=== PATIENT | male | born 1960 | race Caucasian/White ===

== ENCOUNTER 2021-06-23 14:46 | Inpatient (IN) ==
--- NOTE | 2021-06-23 15:54 | Emergency Department Note ---
HPI General Chief complaint: Abdominal Pain Stated complaint: Gallbladder Surgery Time Seen by Provider: 06/23/21 14:55 Source: patient Mode of arrival: ambulatory Limitations: no limitations History of Present Illness HPI Narrative: Narrative: 60 yo M w/ h/o nephrolithiasis p/w RUQ pain. He reports that he has been having pain on and off some a few months, and has been Dx'd w/ back spasm and a nephrolithiasis. He saw his PCP for his ongoing RUQ, who ordered a HIDA scan. Results of this showed cholecystitis. He has not had an US. He currently c/o RUQ pain that is sharp, non-radiating, worsened w/ PO intake. He has not had similar Sx in the past. Of note, after I completed my evaluation of the pt, his PCP called and reported a positive HIDA scan and stated that she had already coordinated admission w/ Dr Corbin. Related Data Home Medications Medication Instructions Recorded Confirmed cholecalciferol (vitamin D3) 50 50 mcg PO QDAY 06/16/21 06/23/21 mcg (2,000 unit) capsule magnesium 250 mg tablet 250 mg PO QDAY 06/16/21 06/23/21 testosterone TOPICAL 06/16/21 06/16/21 Previous Rx's Medication Instructions Recorded ondansetron 4 mg PO Q8H PRN #10 tab 06/15/21 tamsulosin 0.4 mg PO QDAY #14 cap 06/15/21 tramadol 50 mg tablet 50 mg PO BID PRN 10 Days #20 tab 06/16/21 Allergies Allergy/AdvReac Type Severity Reaction Status Date / Time No Known Drug Allergies Allergy Verified 06/23/21 14:51 Review of Systems ROS ROS Narrative: Narrative: All systems ED: reviewed and negative except as stated. [facility] Narrative Patient History Narrative: Narrative: Medical/Surgical/Family History All Active Problems (Updated 06/23/21 @ 19:30 by Sher Corbin MD) Cholecystitis, chronic (Acute) Abdominal pain, right upper quadrant (Acute) Cholecystitis, chronic (Acute) Establishing care with new doctor, encounter for (Acute) Aneurysm of left renal artery (Acute) Back muscle spasm (Chronic) Back pain (Chronic) Nausea (Chronic) Lower thoracic back pain (Chronic) Flank pain (Chronic) Kidney stone (Chronic) Ureteral stone (Chronic) Left foot pain (Chronic) Plantar fasciitis of left foot (Chronic) Fatigue (Chronic) Family history of coronary artery disease younger than 40 years old (Chronic) History of colonoscopy (Chronic 10/22/19) DDD (degenerative disc disease), cervical (Chronic) History of hernia repair (Chronic) History of rotator cuff surgery (Chronic ~2010) Depression (Chronic) Anxiety (Chronic) Chest pain (Chronic) Headache (Chronic) Skin lesion (Chronic) Basal cell carcinoma (Chronic) Lumbar back pain (Chronic) RLQ abdominal pain (Chronic) DDD (degenerative disc disease), lumbar (Chronic) Ganglion cyst (Chronic) Medical History Anxiety Back muscle spasm Back pain Basal cell carcinoma face - Paige Arnzan Chest pain DDD (degenerative disc disease), cervical IPC 2009 DDD (degenerative disc disease), lumbar Depression Family history of coronary artery disease younger than 40 years old Fatigue Flank pain Ganglion cyst Headache Kidney stone Left foot pain Lower thoracic back pain Lumbar back pain Nausea Plantar fasciitis of left foot RLQ abdominal pain Skin lesion Ureteral stone Surgical History History of colonoscopy (10/22/19) 10/12/10 Dr Ugalde - recheck in 10 years History of hernia repair as a History of rotator cuff surgery (~2010) left shoulder rotator cuff repair - Dr Hunt Family History Father , age 37 Heart disease HTN (hypertension) Mother HTN (hypertension) Diabetes mellitus Arthritis Basal cell carcinoma Sister Basal cell carcinoma Grandmother HTN (hypertension) paternal Heart disease paternal Social History Smoking Status: Never smoker Substance Use: does not use Exam Narrative Narrative: Narrative: General Limitations: no limitations General appearance: Present alert and in no apparent distress Head Head: Present atraumatic and normocephalic ENT ENT: Present normal oropharynx and mucous membranes moist Chest Chest: Present normal inspection and symmetric chest wall rise Respiratory Respiratory: Present normal lung sounds bilaterally; Absent respiratory distress, rales/crackles, wheezes and stridor Cardiovascular Cardiovascular: Present regular rate, normal rhythm, +S1, +S2 and other (2+ B/L radial pulses); Absent systolic murmur and diastolic murmur Adbominal Abdominal: Present soft, tenderness (mild RUQ) and normal bowel sounds; Absent distention, guarding, rebound, rigidity and Castellanos's sign Extremities Extremities: Absent pedal edema Neurological Neurological: Present alert and oriented X3 Psychiatric Psychiatric: Present normal affect Skin Skin: Present warm (WNL) and dry Course Vital Signs Vital signs: Vital Signs Temperature 97.1 F 06/23/21 14:48 Pulse Rate 68 06/23/21 14:48 Respiratory Rate 18 06/23/21 14:48 Blood Pressure 170/91 06/23/21 14:48 Pulse Oximetry (%) 98 06/23/21 14:48 Temperature 97.1 F 06/24/21 04:00 Pulse Rate 59 L 06/24/21 04:00 Respiratory Rate 16 06/24/21 04:00 Blood Pressure 133/88 06/24/21 04:00 Pulse Oximetry (%) 96 06/24/21 04:00 MDM MDM Narrative Medical decision making narrative: Narrative: 60 yo M w/ no PMH p/w RUQ pain and reportedly positive HIDA scan. DDx - peritonitis, cholecystitis, pancreatitis, metabolic/electrolyte d/o Pt presented stable, in NAD. His examination revealed mild RUQ TTP. I received the HIDA report from [facility] and the impression was as follows: "Nonvisualization of the gallbladder. Could the patient have chronic cholecystitis?". This was clinically not a surgical emergency and peritonitis was not present. I proceeded w/ labs and imaging. His CBC showed no leukocytosis and no L shift. CMP showed normal LFTs. Lipase was WNL. US however, showed "Markedly abnormal gallbladder. Gallbladder is filled with small stones and debris. There is gallbladder wall thickening and pericholecystic fluid. Appearance is consistent with cholecystitis and gangrenous cholecystitis is possible". Clinically the imaging findings were much worse than Hx, PE, and labs. I d/w Dr Corbin, who kindly came in to the ED to evaluate the pt. He felt that operative management was indicated and admitted the pt, w/ plan for surgery in the AM. I placed an order for zosyn for him. Lab Data Lab results reviewed: Yes I reviewed the patient's lab results. Result diagrams: 06/24/21 05:18 06/23/21 16:02 Labs: Lab Results 06/23/21 06/23/21 06/23/21 Range/Units 16:02 16:02 16:02 WBC 9.4 (4.5-11.0) K/mcL RBC 5.21 (4.63-6.08) M/mcL Hgb 15.7 (13.7-17.5) g/dL Hct 47.5 (40.1-51.0) % MCV 91.2 (80.0-100.0) fL MCH 30.1 (26.0-34.0) pg MCHC 33.1 (31.0-36.0) g/dL RDW 12.1 (11.5-14.5) % Plt Count 323 (140-440) K/mcL MPV 9.3 (7.4-10.4) fL Neut % (Auto) 65.9 (38.0-78.0) % Lymph % (Auto) 25.4 (15.5-49.0) % Harnett % (Auto) 7.2 (1.0-12.0) % Eos % (Auto) 1.1 (0.0-7.0) % Baso % (Auto) 0.4 (0.0-2.0) % Lymph # (Auto) 2.38 (1.50-4.80) K/mcL Harnett # (Auto) 0.68 (0.10-0.90) K/mcL Eos # (Auto) 0.10 (0.00-0.70) K/mcL Baso # (Auto) 0.04 (0.00-0.30) K/mcL Absolute Neutrophils 6.18 (1.80-8.00) K/mcL PT 13.4 (11.9-14.5) sec INR 1.0 (0.9-1.1) APTT 26.0 (20.0-37.0) sec Sodium 143 (133-145) mmol/L Potassium 3.8 (3.3-5.1) mmol/L Chloride 102 (96-108) mmol/L Carbon Dioxide 23 (22-30) mmol/L Anion Gap 18.0 H (8.0-16.0) BUN 9 (6-20) mg/dL Creatinine 0.7 (0.7-1.2) mg/dL GFR Calculation 103 Glucose 94 (70-105) mg/dL Calcium 9.5 (8.6-10.4) mg/dL Total Bilirubin 0.4 (0.1-1.0) mg/dL AST 18 (<40) U/L ALT 19 (<40) U/L Alkaline Phosphatase 51 (39-117) U/L Total Protein 7.3 (5.9-8.4) gm/dL Albumin 4.3 (3.2-5.2) gm/dL Globulin 3.0 (2.2-3.7) gm/dL Albumin/Globulin Ratio 1.4 (1.0-2.3) Lipase 44 (7-60) U/L ED POC Tests ED POC Tests: ESME - SARS Antigen Negative Radiology Data Radiology results reviewed: Yes I reviewed the patient's radiology results. Discharge Plan Patient/Caregiver Discharge Instructions Pt seen by DRAW FRAME TENDER/PA only: No Clinical Impression: Abdominal pain, right upper quadrant, Cholecystitis, chronic Patient Disposition: Xfer As Inpt ([facility]) Condition: Fair Discharge Date/Time: 06/23/21 20:42
[2021-06-23 16:56] LABS: Basophils # (Auto) 0.04 K/mcL (0.00-0.30); Basophils % (Auto) 0.4 % (0.0-2.0); Eosinophils % (Auto) 1.1 % (0.0-7.0); Hematocrit 47.5 % (40.1-51.0); Hemoglobin 15.7 g/dL (13.7-17.5); Lymphocytes # (Auto) 2.38 K/mcL (1.50-4.80); Lymphocytes % (Auto) 25.4 % (15.5-49.0); Mean Cell Volume 91.2 fL (80.0-100.0); Mean Corpuscular HGB Conc 33.1 g/dL (31.0-36.0); Mean Platelet Volume 9.3 fL (7.4-10.4); Monocytes # (Auto) 0.68 K/mcL (0.10-0.90); Monocytes % (Auto) 7.2 % (1.0-12.0); Neutrophils % (Auto) 65.9 % (38.0-78.0); Platelet Count 323 K/mcL (140-440); RBC 5.21 M/mcL (4.63-6.08); Red Cell Distribution Width 12.1 % (11.5-14.5); WBC 9.4 K/mcL (4.5-11.0)
[2021-06-23 17:07] LABS: Prothrombin Time 13.4 sec (11.9-14.5)
[2021-06-23] MEDS ORDERED: morphine 4 MG/ML VIAL IV ONE (17:13)
[2021-06-23] MEDS ORDERED: ONDANSETRON 4 MG/2 ML VIAL IV ONE ×2 (17:13→18:12)
--- NOTE | 2021-06-23 17:16 | Ultrasound Report ---
INDICATION: RUQ abd pain, r/o acute addison TECHNIQUE: Grayscale and color flow Doppler spectral imaging COMPARISON: Previous CT scans dated 06/22/2021, 04/26/2021 FINDINGS: Gallbladder:Markedly abnormal gallbladder. Echogenic material fills the gallbladder lumen with acoustic shadowing. Appearance is consistent with small stones and sludge. Gallbladder wall is thick and measures 7 mm. There is mild pericholecystic fluid. No acoustic shadowing from the gallbladder wall. No evidence for emphysematous cholecystitis. Appearance is consistent with cholecystitis and gangrenous cholecystitis is possible. Common bile duct:No intra or extrahepatic bile duct dilatation.. Common bile duct measures4 mm Liver:Liver is heterogeneous. No focal hepatic mass liver contour is smooth. There is no hepatic abscess.. Liver [id number] cm Portal vein:Normal hepatopedal portal venous flow Pancreas:Visualized portions of the pancreas are normal IMPRESSION: 1. Markedly abnormal gallbladder. Gallbladder is filled with small stones and debris. There is gallbladder wall thickening and pericholecystic fluid. Appearance is consistent with cholecystitis and gangrenous cholecystitis is possible 2. Heterogeneous hepatic parenchyma. No focal mass. No intrahepatic abscess 3. No bile duct dilatation Interpreted and Authenticated by: Brandon Hogan 06/23/21
[2021-06-23 17:18] LABS: ALT/SGPT 19 U/L (<40); AST/SGOT 18 U/L (<40); Albumin 4.3 gm/dL (3.2-5.2); Albumin/Globulin Ratio 1.4 (1.0-2.3); Alkaline Phosphatase 51 U/L (39-117); Bilirubin,Total 0.4 mg/dL (0.1-1.0); Blood Urea Nitrogen 9 mg/dL (6-20); Calcium 9.5 mg/dL (8.6-10.4); Carbon Dioxide 23 mmol/L (22-30); Chloride 102 mmol/L (96-108); Glomerular Filtration Rate 103; Glucose 94 mg/dL (70-105)
[2021-06-23] MEDS ORDERED: HYDROcodone/APAP 5/325MG TABLET PO ONE (18:11)
[2021-06-23] MEDS ORDERED: ONDANSETRON 4 MG ODT TABLET SL ONE (18:22)
[2021-06-23] MEDS ORDERED: PIPERACILLIN SODIUM/TAZOBACTAM 4.5 GM in DEXTROSE 5% IN WATER 50 ML IV ONE (18:41)
--- NOTE | 2021-06-23 19:20 | General Surgery Consult Note ---
HPI Data of Consult Patient: new to practice Consult date: 06/23/21 Requesting physician: Tristan Gregory Primary Care Provider: Brie Davis PA-C Consult Narrative Patient Information: Note initiated : 06/23/21 at 7:19 pm Service Date, if different from initiated Date: [] Patient: Angel Singh 60 y/o M admitted on for Gallbladder Surgery. Chief Complaint: [Cholecystitis] Angel is seen in consultation tonight after what sounds like a several month history of Right Sided Flank and Upper Abdominal Pain. He has undergone a fairly extensive work up over that time including [address] scans in the past week. He then underwent a HIDA Scan today which demonstrated failure of the gallbladder to fill and visualize. He has not had any prior abdominal surgery. His health is overall very good and he denies any cardiac or pulmonary issues. He is NOT on any oral anticoagulants and denies any use of a CPAP or BIPAP. Chief complaint: Abdominal Pain Reason for consult: Cholecystitis cc:: CC: Review of Systems All systems: reviewed and no additional remarkable complaints except as stated PFSH PFSH All Active Problems (Updated 06/23/21 @ 19:30 by Sher Corbin MD) Cholecystitis, chronic (Acute) Abdominal pain, right upper quadrant (Acute) Cholecystitis, chronic (Acute) Establishing care with new doctor, encounter for (Acute) Aneurysm of left renal artery (Acute) Back muscle spasm (Chronic) Back pain (Chronic) Nausea (Chronic) Lower thoracic back pain (Chronic) Flank pain (Chronic) Kidney stone (Chronic) Ureteral stone (Chronic) Left foot pain (Chronic) Plantar fasciitis of left foot (Chronic) Fatigue (Chronic) Family history of coronary artery disease younger than 40 years old (Chronic) History of colonoscopy (Chronic 10/22/19) DDD (degenerative disc disease), cervical (Chronic) History of hernia repair (Chronic) History of rotator cuff surgery (Chronic ~2010) Depression (Chronic) Anxiety (Chronic) Chest pain (Chronic) Headache (Chronic) Skin lesion (Chronic) Basal cell carcinoma (Chronic) Lumbar back pain (Chronic) RLQ abdominal pain (Chronic) DDD (degenerative disc disease), lumbar (Chronic) Ganglion cyst (Chronic) Medical History Anxiety Back muscle spasm Back pain Basal cell carcinoma face - Paige Arnzan Chest pain DDD (degenerative disc disease), cervical IPC 2009 DDD (degenerative disc disease), lumbar Depression Family history of coronary artery disease younger than 40 years old Fatigue Flank pain Ganglion cyst Headache Kidney stone Left foot pain Lower thoracic back pain Lumbar back pain Nausea Plantar fasciitis of left foot RLQ abdominal pain Skin lesion Ureteral stone Surgical History History of colonoscopy (10/22/19) 10/12/10 Dr Ugalde - recheck in 10 years History of hernia repair as a History of rotator cuff surgery (~2010) left shoulder rotator cuff repair - Dr Hunt Family History Father , age 37 Heart disease HTN (hypertension) Mother HTN (hypertension) Diabetes mellitus Arthritis Basal cell carcinoma Sister Basal cell carcinoma Grandmother HTN (hypertension) paternal Heart disease paternal Social History household members: spouse marital status: occupational status: employed 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, [employer] 4 day work week substance use type: does not use MEDS/ALLERGIES Home Medications and Allergies Home Medications Medication Instructions Recorded Confirmed Type ondansetron 4 mg PO Q8H PRN #10 tab 06/15/21 06/16/21 Rx tamsulosin 0.4 mg PO QDAY #14 cap 06/15/21 06/16/21 Rx cholecalciferol (vitamin D3) 50 50 mcg PO QDAY 06/16/21 06/16/21 History mcg (2,000 unit) capsule magnesium 250 mg tablet 250 mg PO QDAY 06/16/21 06/16/21 History testosterone TOPICAL 06/16/21 06/16/21 History tramadol 50 mg tablet 50 mg PO BID PRN 10 Days #20 tab 06/16/21 06/16/21 Rx Allergies Allergy/AdvReac Type Severity Reaction Status Date / Time No Known Drug Allergies Allergy Verified 06/23/21 14:51 Physical Examination Vital Signs Vital signs: Temp Pulse Resp BP Pulse Ox 97.1 F 73 18 153/90 93 06/23/21 14:48 06/23/21 17:06 06/23/21 14:48 06/23/21 17:06 06/23/21 17:06 General physical appearance General physical exam: well developed, well nourished, no distress and other (sitting up and having dinner in his ER room along with his ) Eyes Eye exam: normal ocular movement; negative icteric Head Head exam IM: Present atraumatic and normocephalic Neck Neck exam: trachea midline and no lymphadenopathy Cardiovascular Cardiovascular exam IM: Present normal rate and rhythm and RRR Respiratory Respiratory exam: normal expansion and normal respiratory effort Abdomen Abdomen: Present soft and non tender (minimally tender in the RUQ, no mass or other finding, no localized peritoneal findings ) Genitourinary Genitourinary (Male): Present other (no CVA tenderness ) Integumentary Integumentary: Present no abnormal pigmentation Neurologic Neurologic: Present other (grossly intact ) Psychiatric Psychiatric: Present oriented to person, oriented to place and speech is normal Results Labs Result diagrams: 06/23/21 16:02 06/23/21 16:02 Labs: Abnormal lab results 06/23/21 Range/Units 16:02 Anion Gap 18.0 H (8.0-16.0) Diabetes panel 06/23/21 Range/Units 16:02 Sodium 143 (133-145) mmol/L Potassium 3.8 (3.3-5.1) mmol/L Chloride 102 (96-108) mmol/L Carbon Dioxide 23 (22-30) mmol/L BUN 9 (6-20) mg/dL Creatinine 0.7 (0.7-1.2) mg/dL Glucose 94 (70-105) mg/dL Calcium 9.5 (8.6-10.4) mg/dL AST 18 (<40) U/L ALT 19 (<40) U/L Alkaline Phosphatase 51 (39-117) U/L Total Protein 7.3 (5.9-8.4) gm/dL Albumin 4.3 (3.2-5.2) gm/dL Calcium panel 06/23/21 Range/Units 16:02 Calcium 9.5 (8.6-10.4) mg/dL Albumin 4.3 (3.2-5.2) gm/dL Pituitary panel 06/23/21 Range/Units 16:02 Sodium 143 (133-145) mmol/L Potassium 3.8 (3.3-5.1) mmol/L Chloride 102 (96-108) mmol/L Carbon Dioxide 23 (22-30) mmol/L BUN 9 (6-20) mg/dL Creatinine 0.7 (0.7-1.2) mg/dL Glucose 94 (70-105) mg/dL Calcium 9.5 (8.6-10.4) mg/dL Adrenal panel 06/23/21 Range/Units 16:02 Sodium 143 (133-145) mmol/L Potassium 3.8 (3.3-5.1) mmol/L Chloride 102 (96-108) mmol/L Carbon Dioxide 23 (22-30) mmol/L BUN 9 (6-20) mg/dL Creatinine 0.7 (0.7-1.2) mg/dL Glucose 94 (70-105) mg/dL Calcium 9.5 (8.6-10.4) mg/dL Total Bilirubin 0.4 (0.1-1.0) mg/dL AST 18 (<40) U/L ALT 19 (<40) U/L Alkaline Phosphatase 51 (39-117) U/L Total Protein 7.3 (5.9-8.4) gm/dL Albumin 4.3 (3.2-5.2) gm/dL All other labs normal. A/P Assessment and plan (1) Cholecystitis, chronic: Status: Acute Narrative A/P Narrative: Severe Chronic and Subacute Cholecystitis He currently looks well and options are discussed including recommendation for Cholecystectomy along with a full review or Risks, Benefits, Potential Complications and Alternative Treatment Options all of which are discussed at length including but not limited to infection, bleeding, trocar injury, injury to surrounding structures, need for conversion to open, drain placement, partial or subtotal and/or fenestrating Cholecystectomy which was especially emphasized here, possible bile leak, need for additional surgical and/or endoscopic interventions and other issues as well. The option for percutaneous drain mgmt, of having this done on an outpatient basis in a more elective setting and other issues were all discussed at length as well We will admit to the hospital and add him on to the OR schedule for tomorrow if possible. He will be on clear liquids tonight and NPO after midnight. IVFs and IV ABs will be initiated as well Time Spent With Patient Time: Total time spent is greater than 50% in coordination of care (as documented) at patient's floor/unit and/or counseling patient:
[2021-06-23] MEDS ORDERED: NALOXONE HCL 0.4 MG/ML VIAL IV PRN (19:39)
[2021-06-23] MEDS ORDERED: ONDANSETRON 4 MG/2 ML VIAL IV PRN (19:39)
[2021-06-23] MEDS: 0.9 % SODIUM CHLORIDE 10 ML SYRINGE IV SCH (21:45)
[2021-06-23] MEDS: DEXTROSE 5%-1/2NS 1,000 ML IV SCH (22:41)
[2021-06-23] MEDS: HYDROmorphone 1 MG/ML SYRINGE IV PRN (23:43)
[2021-06-24] MEDS: HYDROmorphone 1 MG/ML SYRINGE IV PRN ×2 (03:55→08:12)
[2021-06-24] MEDS: PIPERACILLIN SODIUM/TAZOBACTAM 3.375 GM in DEXTROSE 5% IN WATER 50 ML IV SCH ×3 (05:35→22:15)
[2021-06-24] MEDS: 0.9 % SODIUM CHLORIDE 10 ML SYRINGE IV SCH ×3 (06:09→21:06)
[2021-06-24 06:58] LABS: Hematocrit 44.8 % (40.1-51.0); Hemoglobin 15.1 g/dL (13.7-17.5); Mean Cell Volume 91.2 fL (80.0-100.0); Mean Corpuscular HGB Conc 33.7 g/dL (31.0-36.0); Mean Platelet Volume 9.3 fL (7.4-10.4); Platelet Count 306 K/mcL (140-440); RBC 4.91 M/mcL (4.63-6.08); Red Cell Distribution Width 12.1 % (11.5-14.5); WBC 8.3 K/mcL (4.5-11.0)
[2021-06-24 07:21] LABS: ALT/SGPT 19 U/L (<40); AST/SGOT 18 U/L (<40); Albumin/Globulin Ratio 1.5 (1.0-2.3); Alkaline Phosphatase 46 U/L (39-117); Bilirubin,Total 0.6 mg/dL (0.1-1.0); Blood Urea Nitrogen 7 mg/dL (6-20); Calcium 8.9 mg/dL (8.6-10.4); Carbon Dioxide 26 mmol/L (22-30); Chloride 100 mmol/L (96-108); Globulin 2.6 gm/dL (2.2-3.7); Glomerular Filtration Rate 93; Glucose 129 mg/dL (70-105)
[2021-06-24] MEDS ORDERED: SCOPOLAMINE 1 PATCH PATCH TOPICAL PRN (07:47)
[2021-06-24] MEDS ORDERED: IPRATROPIUM/ALBUTEROL 3 ML AMPUL.NEB NEB PRN ×2 (07:47→12:42)
[2021-06-24] MEDS: DEXTROSE 5%-1/2NS 1,000 ML IV SCH ×2 (08:04→15:51)
--- NOTE | 2021-06-24 08:58 | General Surgery Progress Note ---
SUBJECTIVE Subjective Patient information: Note initiated : 06/24/21 at 8:52 am Service Date, if different from initiated Date: [] Patient: Angel Singh 60 y/o M admitted on 06/23/21 for Gallbladder Surgery. Chief Complaint: [Cholecystitis] He feels well this am with some residual soreness. No issus overnight other than a mild headache related to the IV Narcotics. Constitutional Vitals: Vital Signs Temp Pulse Resp BP Pulse Ox 97.8 F 66 16 144/85 95 06/24/21 07:31 06/24/21 07:31 06/24/21 07:31 06/24/21 07:31 06/24/21 07:31 Period Temp Pulse Resp BP Sys/Castellano Pulse Ox Last 24 Hr 97.1 F-98.5 F 59-88 12-18 133-170/82-99 93-98 Intake and Output 06/23/21 06/24/21 06/24/21 21:59 05:59 13:59 Intake Total 50 0 988 Output Total 625 Balance 50 -625 988 Weight 194 lb 3.2 oz Intake & Output: Intake & Output 06/23/21 06/24/21 06/24/21 21:59 05:59 13:59 Intake Total 50 0 988 Output Total 625 Balance 50 -625 988 Weight 194 lb 3.2 oz Intake: IV 50 988 Dextrose 5%-1/2Ns IV Solution 1 938 ,000 ml @ 100 mls/hr IV .Q10H [facility] Rx#:[id number] Zosyn 3.375 gm In Dextrose 5% 50 in Water 50 ml @ 100 mls/hr IV Q8H [facility] Rx#:[id number] Zosyn 4.5 gm In Dextrose 5% in 50 Water 50 ml @ 100 mls/hr IV ONCE ONE Rx#:[id number] Oral 0 Output: Void Amount 625 Other: Urine Appearance Clear Urine Color Bright Yellow # Voids 1 General appearance: cooperative and no acute distress Head Head exam: Present atraumatic and normocephalic Respiratory Respiratory exam: Absent respiratory distress GI/Abdominal Additional comments: normal appearance Psychiatric Psychiatric exam: Present normal affect A/P Assessment and plan (1) Cholecystitis, chronic: Status: Acute Narrative A/P Narrative: Severe Chronic Cholecystitis Plan is for surgery later on today Issues are reviewed again with them today and he would like to proceed as planned Risks, benefits, potential complications and alternative treatment options are all once again reviewed particularly possible need for conversion to open and also possible need for partial or subtotal and/or fenestrating cholecystectomy which are very possible here. Time Spent With Patient Time: Total time spent is greater than 50% in coordination of care (as documented) at patient's floor/unit and/or counseling patient:
[2021-06-24] MEDS ORDERED: DEXAMETHASONE 10 MG/ML VIAL ONE (10:05)
[2021-06-24] MEDS ORDERED: KETAMINE 50 MG/ML Syringe (ANEST) IV ONE (10:05)
[2021-06-24] MEDS ORDERED: HYDROmorphone 1 MG/ML SYRINGE ONE (10:05)
[2021-06-24] MEDS ORDERED: PROPOFOL 200 MG/20 ML VIAL IV ONE (10:05)
[2021-06-24] MEDS ORDERED: LIDOCAINE HCL/PF 100 MG/5 ML SYRINGE IV ONE (10:05)
[2021-06-24] MEDS ORDERED: SUGAMMADEX SODIUM 200 MG/2 ML VIAL IV ONE (10:05)
[2021-06-24] MEDS ORDERED: ONDANSETRON 4 MG/2 ML VIAL ONE (10:05)
[2021-06-24] MEDS ORDERED: ROCURONIUM 10 MG/ML ML IV ONE (10:05)
[2021-06-24] MEDS ORDERED: fentaNYL 250 MCG/5 ML VIAL IV ONE (10:05)
[2021-06-24] MEDS ORDERED: MAGNESIUM SULFATE 2 GM/50 ML BAG IV ONE (10:05)
[2021-06-24] MEDS ORDERED: BUPIVACAINE W/EPI 0.25% 50 ML VIAL IJ ONE (10:30)
[2021-06-24] MEDS ORDERED: NALOXONE HCL 0.4 MG/ML VIAL IV PRN (12:42)
[2021-06-24] MEDS ORDERED: diphenhydrAMINE 50 MG/ML VIAL IV PRN (12:42)
[2021-06-24] MEDS ORDERED: ACETAMINOPHEN 1,000 MG/100 ML BAG IV ONE (12:42)
[2021-06-24] MEDS ORDERED: LACTATED RINGERS 250 ML IV PRN (12:42)
[2021-06-24] MEDS ORDERED: ONDANSETRON 4 MG/2 ML VIAL IV PRN (12:42)
[2021-06-24] MEDS ORDERED: PROMETHAZINE 25 MG/ML VIAL IV PRN (12:42)
[2021-06-24] MEDS ORDERED: BENZOCAINE/MENTHOL 1 LOZENGE PO PRN (12:42)
[2021-06-24] MEDS ORDERED: KETOROLAC 30 MG/ML VIAL IV PRN (12:42)
[2021-06-24] MEDS ORDERED: MEPERIDINE 25 MG/ML VIAL IV PRN (12:42)
[2021-06-24] MEDS ORDERED: LACTATED RINGERS 1,000 ML IV SCH (12:45)
[2021-06-24] MEDS: fentaNYL 100 MCG/2 ML VIAL IV PRN ×2 (14:33→14:37)
--- NOTE | 2021-06-24 16:41 | Brief Operative Note ---
Brief Operative Note Date of procedure: 06/24/21 Pre-op diagnosis: Chronic Cholecystitis Post-op diagnosis: other (Severe Chronic Cholecystitis) Procedure: Lap Cholecystectomy Grafts/Implants: No Anesthesia: GETA Findings: severe acute and chronic cholecystitis with adherence of the medial gallbladder to the Common Hepatic Duct Complications: none Surgeon: Sher Corbin Estimated blood loss (cc): 25 Specimens Removed/Pathology: other (Gallbladder) Condition: stable Disposition: PACU
[2021-06-24] MEDS: oxyCODONE HCL 5 MG TABLET PO PRN (20:15)
[2021-06-25] MEDS: oxyCODONE HCL 5 MG TABLET PO PRN ×2 (00:20→11:33)
[2021-06-25] MEDS: DEXTROSE 5%-1/2NS 1,000 ML IV SCH ×2 (02:52→11:39)
[2021-06-25] MEDS: PIPERACILLIN SODIUM/TAZOBACTAM 3.375 GM in DEXTROSE 5% IN WATER 50 ML IV SCH (05:33)
[2021-06-25] MEDS: 0.9 % SODIUM CHLORIDE 10 ML SYRINGE IV SCH (05:46)
--- NOTE | 2021-06-25 08:40 | Operative Note ---
DATE OF OPERATION: 06/24/2021 PREOPERATIVE DIAGNOSIS: Severe chronic and subacute cholecystitis. POSTOPERATIVE DIAGNOSIS: Severe chronic and subacute cholecystitis. OPERATIVE PROCEDURE: Laparoscopic cholecystectomy. SURGEON: Sher Corbin MD ANESTHESIA: General. ESTIMATED BLOOD LOSS:. PREOPERATIVE MEDICATIONS: Zosyn 3.375 g IV. INDICATIONS: The patient is a 60-year-old male who presented to the Emergency Room yesterday evening with about 2-1/2 month history of persistent nagging right upper quadrant and right flank pain and discomfort. He had undergone a fairly extensive workup as the pain had become more severe of late. That included sequential cross-sectional imaging in the form of CT and a CT angio, both of which were deemed to essentially be negative. He then subsequently underwent a HIDA scan, which demonstrated evidence of cystic duct obstruction and potential cholecystitis. He proceeded to the Emergency Room and we were asked to see him in consultation. Clinically, he has appeared quite benign and minimally tender without any evidence of sepsis or indications for a particularly emergent surgery. However, an ultrasound done in the Emergency Room demonstrated severe gallbladder wall thickening and tremendous inflammatory change and then retrospective review of one of his CT scans demonstrated that as well with tremendous amounts of pericholecystic fluid and ongoing pain and discomfort in the area. Therefore, I felt it was reasonable to bring him in overnight and proceed to the operating room the following day. Risks, benefits, potential complications and alternative treatment options of our recommended procedure for laparoscopic cholecystectomy were all discussed at length. These included, but not limited to bleeding, infection, cosmetic dissatisfaction, abnormal scarring, the strong possibility that he may require a partial or subtotal or fenestrating cholecystectomy, the potential for conversion to open, the probable need for drain placement and just what was expected to be a relatively difficult case based on the imaging and the overall clinical course. He was given other options as well such as conservative management, scheduling for another time, percutaneous drainage and other issues, but really we recommended surgery for him and he very much wished to have that done. DESCRIPTION OF PROCEDURE: The patient was taken to the operating room and placed supine on the OR table, placed under general anesthesia and intubated. Bilateral SCDs were applied. All pressure sensitive areas were carefully padded. The left arm was tucked to the side. The right arm was placed out on an arm board. The abdomen was then shaved and then widely prepped and draped in a sterile fashion. Bilateral SCDs were applied as well and the entire OR team worked to position him comfortably and safely on the OR table. Once the abdomen was widely prepped and draped, procedure began with accessing the peritoneal cavity utilizing a 0-degree, 5-mm scope through the Visiport in the right upper abdomen. Once we had obtained peritoneal access, pneumoperitoneum was obtained with high-flow CO2 insufflation and the area of access was examined to make sure there was no evidence of injury, none was seen. We then changed out the 0-degree scope for a 30-degree scope and then placed our remaining trocars. This included a 5 mm supraumbilical trocar, a 12 mm midepigastric subxiphoid trocar and then an additional 5 mm right upper abdominal working trocar. The camera was resited to the supraumbilical 5 mm port. The patient was then placed in reverse Trendelenburg position and airplaned towards the left side. The gallbladder was visualized. There was omentum and transverse colonic mesentery densely adherent to it. This was bluntly dissected away. The gallbladder could not be grasped given how chronically thickened and distended it was. A needle aspiration was performed to aspirate bile, which made the gallbladder a little bit more manageable, but with tremendous wall thickness and edema in the area were able to get purchase on the fundus only with some difficulty, but this did allow us to elevate the gallbladder towards the right shoulder and here, we were able to see just how tremendously adherent the duodenum was to the lower aspect of the gallbladder. This had to be gently and carefully, both bluntly and sharply dissected away normal. No thermal energy was used here and there were several dense adhesions. I stayed right on the gallbladder and dissected these away sharply to finally get down to the level of what appeared to be the infundibulum of the gallbladder and the duodenum was able to be swept down and away. At this point, the gallbladder itself was examined. It was densely inflamed and densely adherent to the structures of the lela and hepatocystic triangle. No traditional anatomic landmarks could initially be seen. Working high up on the gallbladder in an area that I estimated to be roughly at the level of the infundibulum I was able to slowly and gradually develop a plane, which allowed us to ultimately create enough space here to begin to dissect out the anterolateral aspect of the infundibulum and an area of safety and then ultimately identify what appeared to be the origin of the cystic duct coming off the neck of the gallbladder. We then proceeded anteriorly and in the anteromedial area dissected very carefully and very slowly to fully delineate and ultimately completely dissect out the common hepatic duct anteriorly and the right lateral surface of it to completely delineate it from the gallbladder itself to which was in the process of becoming densely adherent. This was all done very carefully. Great care was taken to keep all thermal energy away from the common hepatic duct, which again could be seen coursing up to the lela. After we were able to develop and delineate and fully dissect out the hepatocystic triangle. Next, we continued with an extensive cystic plate dissection to develop the space more and to assure that there were no interposed ductal structures. None were seen. The right hepatic artery could be seen coursing under the common hepatic duct in standard anatomic fashion and several branches constituted the cystic artery coursing up to the gallbladder. These were taken down either between clips or utilizing the cautery depending on their size and location and proximity to the gallbladder itself. Gradually, we were able to obtain this very clear critical view of safety, where a very short cystic duct could be seen coursing up to the gallbladder from its confluence with the common hepatic duct and common bile duct and the extensive cystic plate dissection confirmed that there were no other interposed structures here and as mentioned, the entire common hepatic duct on its anterior and right lateral surface was completely dissected free so that it could be seen along its entire length and was well away from the gallbladder at this point, after the dissection that had been done. To this end, I elected to go ahead and transect the gallbladder at the cystic duct at its junction point with the gallbladder and the neck of the gallbladder. A 35 mm Zuehl flex endovascular stapler was brought into the field and a single firing transected the gallbladder at its junction point of the neck and the cystic duct several centimeters away from the origin of the cystic duct and the common bile duct. I then was able to grasp the neck of the gallbladder and retract it towards the right shoulder as well and then we spent a fair amount of time dissecting the gallbladder out of the remaining gallbladder fossa. It was extremely thickened and densely adherent and dissection was fairly tedious here, but this proceeded in a reasonably prompt fashion and the gallbladder was ultimately liberated in its entirety. It was placed in an EndoCatch and removed through the subxiphoid trocar under direct vision and examined on the back table and sent to pathology. Several small rents occurred in the gallbladder, high up on the fundus during the course of the dissection, but there was no evidence of any bilious stony spillage. The area was then extensively irrigated out. There was no active bleeding or hemorrhage. I applied some Surgicel as a topical hemostatic and the gallbladder dissection bed. The cystic duct stump was briefly examined to make sure there is no evidence of bleeding or biliary leakage here. None was seen. I elected to place a drain given the inflammatory nature of the situation and the potential risk for bile leaks, either from the stump or directly from the liver bed itself and to this end, a 15-Gibraltarian flat OG drain was brought in through the lateral trocar site in the right upper abdomen, secured in place with a 3-0 silk stitch and positioned just beneath and adjacent to the liver in the area of dissection. We irrigated out a final time to make sure there was no active bleeding or hemorrhage or biliary leakage. None was seen. The 12 mm trocar was removed. We then closed the fascia with a single 0 Vicryl stitch utilizing the suture passer device. We then relieved the pneumoperitoneum. I withdrew all trocars under direct vision to make sure there was no active bleeding and none was seen. The incisions were then closed with interrupted 3-0 Vicryl and 4-0 Monocryl sutures, respectively. I placed an additional 0 Vicryl stitch anteriorly in the fascia of the midepigastric subxiphoid port to facilitate a more secure fascial closure and hopefully minimize the risk of postoperative herniation. Steri-Strips and sterile dressings were applied. The patient was awakened, extubated, and transferred to PACU in satisfactory condition. No apparent complications or issues. Sponge, needle and instrument counts were correct as discussed. FINDINGS: Extremely inflamed, adherent and edematous gallbladder, which made the dissection fairly tedious and lengthy, but no apparent complications were noted and a single 15-Gibraltarian flat OG drain was left in place. BW:marely Job ID: [id number] Doc ID: [id number] Sher Corbin M.D.
--- NOTE | 2021-06-25 10:03 | General Surgery Progress Note ---
SUBJECTIVE Subjective Patient information: Note initiated : 06/25/21 at 10:00 am Service Date, if different from initiated Date: [] Patient: Angel Singh 60 y/o M admitted on 06/23/21 for Gallbladder Surgery. Chief Complaint: [] Doing well this am, some pain but feels reasonably well and would like to go today Constitutional Vitals: Vital Signs Temp Pulse Resp BP Pulse Ox 98.0 F 68 16 130/81 96 06/25/21 07:55 06/25/21 07:55 06/25/21 07:55 06/25/21 07:55 06/25/21 07:55 Period Temp Pulse Resp BP Sys/Castellano Pulse Ox Last 24 Hr 97.0 F-98.8 F 65-92 7-17 119-183/66-119 87-100 Intake and Output 06/24/21 06/25/21 06/25/21 21:59 05:59 13:59 Intake Total 928 1553 50 Output Total 750 2230 Balance 178 -677 50 Weight 196 lb 4.8 oz Intake & Output: Intake & Output 06/24/21 06/25/21 06/25/21 21:59 05:59 13:59 Intake Total 928 1553 50 Output Total 750 2230 Balance 178 -677 50 Weight 196 lb 4.8 oz Intake: IV 928 1313 50 Dextrose 5%-1/2Ns IV Solution 1 778 1263 0 ,000 ml @ 100 mls/hr IV .Q10H MAGDALENO Rx#:[id number] Zosyn 3.375 gm In Dextrose 5% 50 50 50 in Water 50 ml @ 100 mls/hr IV Q8H MAGDALENO Rx#:[id number] Oral 240 Output: Drainage 30 Right Lower Abdomen 30 Void Amount 750 2200 Other: Urine Appearance Clear Clear Urine Color Dark Yellow Dark Yellow Urine Odor Normal Normal General appearance: cooperative and no acute distress Respiratory Respiratory exam: Absent respiratory distress Additional comments: normal inspiration Cardiovascular Cardiovascular exam: Present normal rate and rhythm and RRR GI/Abdominal Additional comments: dressings and dry, belly soft and non distended, drain appears serosang but ? bile tinge A/P Assessment and plan (1) Cholecystitis, chronic: Status: Acute Narrative A/P Narrative: Doing Well Post Lap Felisa for severe cholecystitis OK for discharge today Will leave drain in for now with early follow up in clinic for removal Time Spent With Patient Time: Total time spent is greater than 50% in coordination of care (as documented) at patient's floor/unit and/or counseling patient:
--- NOTE | 2021-06-25 12:46 | Surgical Pathology Report ---
Histology Microscopic Diagnosis Specimen A- GALLBLADDER, CHOLECYSTECTOMY: --- PARTIALLY NECROTIZING ACUTE AND CHRONIC CHOLECYSTITIS. --- CHOLESTEROLOSIS. (DMT) Procedural Impression Chronic cholecystitis. Gross Description Received in formalin labeled gallbladder, is a disrupted purple-tatum gallbladder. It is 7.7 x 2.8 x 3.2 cm. There is a 1.2 cm staple line on the duct. Grossly there are no stones identified. The mucosa is pink-tatum and covered with areas of lacy yellow pigmentation and sunken green areas. The wall is up to 0.9 cm thick. [employer] Worker sections submitted in two cassettes. (SCB:lore) Electronically Signed Curtis Lewis MD, FCAP Electronically Signed 06/25/2021 12:45
--- NOTE | 2021-06-25 18:33 | EKG ---
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
== END 2021-06-25 11:46 | disposition home or self-care (01) | DRG 419 ==
LOC: ED 14:46 → MEDSUR 20:42
PROVIDERS: ADMIT Surgery Surgical Critical Care; ATTEND Surgery Surgical Critical Care